=== PATIENT | female | born 1945 | race African-American/Black ===

== ENCOUNTER 2020-04-27 09:01 | Emergency (ER) | payer MEDICARE, OTHER ==
[~2020-04-27] VITALS: Ht 167.6 cm; Wt 61.0 kg
[2020-04-27] MEDS ORDERED: ONDANSETRON HCL 4MG/2ML INJ IV STA (09:12)
[2020-04-27 10:44] LABS: CHLORIDE 102 mEq/L (98-107)
[2020-04-27 10:45] LABS: BASOPHILS % 0.6 % (0.0-2.0); EOSINOPHILS % 0.6 % (0.0-5.0); HEMATOCRIT. 43.4 % (36.0-48.0); HEMOGLOBIN. 14.6 g/dL (12.0-16.0); LYMPHOCYTES % 21.7 % (20.0-50.0); MEAN CORPUSCULAR HEMOGLOBIN 35.2 pg (28.0-32.0); MEAN CORPUSCULAR VOLUME 104.9 fL (81.0-99.0); MONOCYTES % 7.2 % (2.0-8.0); NEUTROPHILS % 69.9 % (40.0-76.0); PLATELET 343 x1000/uL (130-400); RED BLOOD CELL COUNT 4.14 mill/uL (4.2-5.4); RED CELL DISTRIBUTION WIDTH 12.5 % (11.6-14.6)
[2020-04-27 10:52] LABS: CLARITY URINE CLEAR (CLEAR); COLOR URINE YELLOW (YELLOW); KETONES URINE NEGATIVE (NEGATIVE); LEUKOCYTE ESTERASE URINE NEGATIVE (NEGATIVE); NITRITE URINE NEGATIVE (NEGATIVE); OCCULT BLOOD URINE NEGATIVE (NEGATIVE); PH URINE 7.5 (4.5-8.0); PROTEIN URINE NEGATIVE (NEGATIVE); SPECIFIC GRAVITY URINE 1.014 (1.005-1.030); UROBILINOGEN URINE 0.2 E.U./dL (0.2-1.0)
[2020-04-27 19:00] VITALS: BP 120/83
== END 2020-04-27 19:54 | disposition short-term general hospital (02) ==
LOC: ER 09:01
DX: R62.7 Adult failure to thrive (principal); E78.00 Pure hypercholesterolemia, unspecified; I10 Essential (primary) hypertension; Z68.21 Body mass index [BMI] 21.0-21.9, adult
CPT/HCPCS: 36415; 80053; 81003; 84484; 85025; 93005; 99285